=== PATIENT | female | born 1960 | race Caucasian/White ===

== ENCOUNTER 2025-08-04 09:22 | Inpatient (IN) | payer MEDICARE, BC ==
[~2025-08-04] VITALS: Ht 154.9 cm; Wt 74.8 kg
[2025-08-04] MEDS ORDERED: VANCOMYCIN 1 GM VIAL ONE (10:26)
[2025-08-04] MEDS ORDERED: dexaMETHasone SOD PHOSPHATE 2 ML ONE (10:26)
[2025-08-04] MEDS ORDERED: LIDOCAINE 2%-EPI 1:100,000 30 ML VIAL ONE (10:26)
[2025-08-04 12:00] VITALS: BP 106/59; TEMP 97.7; O2SAT 97
[2025-08-04] MEDS ORDERED: ONDANSETRON HCL/PF 4 MG/2 ML VIAL IV PRN (14:00)
[2025-08-04] MEDS ORDERED: HYDROMORPHONE 1 MG/1 ML DISP.SYRIN IV PRN (14:00)
[2025-08-04] MEDS ORDERED: ASPI-1420 PO (14:13)
[2025-08-04] MEDS ORDERED: ERGO500093 PO (14:13)
[2025-08-04] MEDS ORDERED: SERT50TA12 PO (14:13)
[2025-08-04] MEDS ORDERED: ATOR20TA PO (14:13)
[2025-08-04] MEDS ORDERED: FENO120T PO (14:13)
[2025-08-04] MEDS ORDERED: AMOX1TAB16 MT (14:13)
[2025-08-04] MEDS ORDERED: TRAM50TA2 PO (14:13)
[2025-08-04] MEDS: IV NS 0.9% 1,000 ML IV PRN (14:32)
[2025-08-04 16:00] VITALS: BP_SYST 101; BP_SYST 122; BP_DIAS 60; BP_DIAS 75; TEMP 98.4; TEMP 98.7; O2SAT 94; O2SAT 97
[2025-08-04] MEDS ORDERED: MAGNESIUM HYDROXIDE 30 ML UDC PO PRN (16:30)
[2025-08-04] MEDS ORDERED: MAG HYDROX/AL HYDROX/SIMETH 30 ML UDC PO PRN (16:30)
[2025-08-04] MEDS ORDERED: ACETAMINOPHEN 325 MG TABLET PO PRN (16:30)
[2025-08-04] MEDS ORDERED: ONDANSETRON HCL/PF 4 MG/2 ML VIAL IVP PRN (16:30)
[2025-08-04] MEDS ORDERED: Z GUARD REMEDY 4 OZ OINT TP PRN (16:30)
[2025-08-04] MEDS: ACETAMINOPHEN 325 MG TABLET PO PRN (19:11)
[2025-08-04 20:00] VITALS: BP 119/82; TEMP 98.1; O2SAT 98
[2025-08-04 20:41] VITALS: BP 101/65; TEMP 98.1; O2SAT 95
[2025-08-04] MEDS: VANCOMYCIN 1 GM in IV D5W 250ml IV SCH (21:26)
[2025-08-05 07:18] LABS: PLATELET COUNT (AUTO) 329 K/uL (150-450); RED BLOOD CELL COUNT(AUTO) 4.08 MIL/uL (4.0-5.2); RED CELL DISTRIBUTION WIDTH 14.2 % (11.5-15.0); WHITE BLOOD COUNT (AUTO) 9.8 K/uL (4.3-11.0)
[2025-08-05 07:43] LABS: CALCIUM, SERUM 9.2 mg/dL (8.5-10.1); CREATININE 0.7 mg/dL (0.6-1.3); PHOSPHORUS 2.8 mg/dL (2.5-4.9); SODIUM SERUM 142.0 mmol/L (136-145); UREA NITROGEN, BLOOD 12.0 mg/dL (7-18)
[2025-08-05 08:00] VITALS: BP 109/68; TEMP 98; O2SAT 96
== END 2025-08-05 13:00 | disposition home or self-care (01) | DRG 141 ==
LOC: DS 09:22 → MED 12:20
PROVIDERS: ADMIT Internal Medicine; ATTEND Internal Medicine
PROC: 0NUR07Z Supplement Maxilla with Autologous Tissue Substitute, Open Approach (ICD-10-PCS; 2025-08-04)
PROC: 0N5R0ZZ Destruction of Maxilla, Open Approach (ICD-10-PCS; 2025-08-04)
PROC: 0CTH0ZZ Resection of Left Submaxillary Gland, Open Approach (ICD-10-PCS; 2025-08-04)
PROC: 0NSR04Z Reposition Maxilla with Internal Fixation Device, Open Approach (ICD-10-PCS; principal; 2025-08-04 12:20)
DX: S02.40DB Maxillary fracture, left side, initial encounter for open fracture (principal); M87.9 Osteonecrosis, unspecified; X58.XXXA Exposure to other specified factors, initial encounter; Y92.9 Unspecified place or not applicable; M27.2 Inflammatory conditions of jaws; F32.9 Major depressive disorder, single episode, unspecified; E78.5 Hyperlipidemia, unspecified; Z88.1 Allergy status to other antibiotic agents; Z79.82 Long term (current) use of aspirin; Z79.899 Other long term (current) drug therapy; D11.9 Benign neoplasm of major salivary gland, unspecified; D16.4 Benign neoplasm of bones of skull and face
CPT/HCPCS: 36415; 80048-TC; 83735-TC; 84100-TC; 85025-TC; A4223; A4338; C1713; C1781; G0378; J0690; J1100; J2704; J3373; J3490; J7030; J7050; J7060